=== PATIENT | female | born 1945 ===

== ENCOUNTER 2017-01-14 12:09 | Emergency (ER) | payer MEDICARE, OTHER ==
[2017-01-14 12:17] VITALS: BMI 21.0
[2017-01-14 12:18] VITALS: BP 150/78; PULSE 84; RESP 18; TEMP 98.4; O2SAT 97
--- NOTE | 2017-01-14 12:31 | C.PDOC ---
History Of Present Illness 71 year old female presents to the ED with complains of intermittent bilateral knee pain that began last year. Patient admits to taking naprosyn for the pain but it has recently finished. Patient denies seeing a doctor in that time period , falls or any other complaints at this time. Time Seen by Provider: 01/14/17 12:25 Chief Complaint (Nursing): Lower Extremity Problem/Injury History Per: Patient History/Exam Limitations: no limitations Onset/Duration Of Symptoms: Intermittent Episodes Current Symptoms Are (Timing): Still Present - Hip Description Of Injury: denies: Fell, Tripped Past Medical History Reviewed: Historical Data, Nursing Documentation, Vital Signs Vital Signs: Last Vital Signs Temp 98.4 F 01/14/17 12:18 Pulse 84 01/14/17 12:18 Resp 18 01/14/17 12:18 BP 150/78 01/14/17 12:18 Pulse Ox 97 01/14/17 16:05 - Medical History PMH: Back Problems Family History: States: Unknown Family Hx - Social History Hx Tobacco Use: No Hx Alcohol Use: Yes Hx Substance Use: No - Immunization History Hx Tetanus Toxoid Vaccination: Yes Hx Influenza Vaccination: Yes Hx Pneumococcal Vaccination: Yes Review Of Systems Constitutional: Negative for: Fever Gastrointestinal: Negative for: Vomiting, Diarrhea Musculoskeletal: Positive for: Other (bilateral knee pain) Physical Exam - Physical Exam Appears: Non-toxic Skin: Warm, Dry Extremity: Normal ROM, Tenderness (bilateral knee tenderness and swelling ), Other (negative compression distraction ) Extremity: Bilateral: Normal ROM Neurological/Psych: Oriented x3 ED Course And Treatment O2 Sat by Pulse Oximetry: 97 Medical Decision Making Medical Decision Making: Patient declines a chest x-ray. Disposition - Disposition Referrals: [facility] [Outside] [facility] [Outside] Chase Guerin III, MD [Staff Provider] - Disposition: HOME/ ROUTINE Disposition Time: 03:00 Condition: STABLE Prescriptions: Ibuprofen [Motrin] 600 mg PO Q8 #15 tab Instructions: Knee Pain (ED) - POA Present On Arrival: Deep Vein Thrombosis / PE - Clinical Impression Clinical Impression: Chronic knee pain - Scribe Statement The provider has reviewed the documentation as recorded by the Scribe Elida Gonzalez All medical record entries made by the Scribe were at my direction and personally dictated by me. I have reviewed the chart and agree that the record accurately reflects my personal performance of the history, physical exam, medical decision making, and the department course for this patient. I have also personally directed, reviewed, and agree with the discharge instructions and disposition.
== END 2017-01-14 12:55 | disposition home or self-care (01) ==
LOC: C.ER 12:09
DX: M25.562 Pain in left knee (principal); M25.561 Pain in right knee; G89.29 Other chronic pain

== ENCOUNTER 2017-02-18 14:39 | Emergency (ER) | payer MEDICARE, OTHER ==
[2017-02-18 14:44] VITALS: BMI 20.1
[2017-02-18 14:45] VITALS: BP 159/97; PULSE 82; TEMP 97.5; O2SAT 95
--- NOTE | 2017-02-18 15:45 | C.PDOC ---
History Of Present Illness 71 y/o female presents to the ED with complains of chronic bilateral knee pain x2-3 years, worse over the past few days. Pt has been taking tylenol #3 without relief. Denies fall, trauma or any other complaints. Time Seen by Provider: 02/18/17 14:53 Chief Complaint (Nursing): Lower Extremity Problem/Injury History Per: Patient History/Exam Limitations: no limitations Onset/Duration Of Symptoms: Days Current Symptoms Are (Timing): Worse Severity: Moderate Recent travel outside of the [place]: No Past Medical History Reviewed: Historical Data, Nursing Documentation, Vital Signs Vital Signs: Last Vital Signs Temp 97.5 F L 02/18/17 14:44 Pulse 82 02/18/17 14:44 Resp 20 02/18/17 15:50 BP 159/97 H 02/18/17 14:44 Pulse Ox 95 02/18/17 18:39 - Medical History PMH: Back Problems Family History: States: Unknown Family Hx - Social History Hx Tobacco Use: No Hx Alcohol Use: Yes Hx Substance Use: No - Immunization History Hx Tetanus Toxoid Vaccination: Yes Hx Influenza Vaccination: No Hx Pneumococcal Vaccination: No Review Of Systems Except As Marked, All Systems Reviewed And Found Negative. Musculoskeletal: Positive for: Other (bilateral knee pain) Neurological: Negative for: Weakness, Numbness Physical Exam - Physical Exam Appears: Non-toxic, No Acute Distress Skin: Warm, Dry, No Rash Head: Atraumatic, Normacephalic Eye(s): bilateral: Normal Inspection Oral Mucosa: Moist Neck: Normal ROM, No Midline Cervical Tenderness, No Paracervical Tenderness, Supple Chest: Symmetrical, No Tenderness Cardiovascular: Rhythm Regular, No Friction Rub, No Murmur Respiratory: Normal Breath Sounds, No Rales, No Rhonchi, No Wheezing Gastrointestinal/Abdominal: Soft, No Tenderness Back: Normal Inspection, No CVA Tenderness Extremity: Capillary Refill (<2 seconds), No Deformity, Other (minimal swelling anterior bilateral knees, full ROM, no tenderness) Extremity: Bilateral: Atraumatic Neurological/Psych: Oriented x3, Normal Motor, Normal Sensation Gait: Steady ED Course And Treatment O2 Sat by Pulse Oximetry: 95 (room air) Pulse Ox Interpretation: Normal Medical Decision Making Medical Decision Making: On re-exam, the patient reports mild improvement and is ambulatory in the ED with steady gait. Disposition - Disposition Referrals: [facility] [Outside] Erwin Bravo MD [Staff Provider] - Disposition: HOME/ ROUTINE Disposition Time: 15:43 Condition: GOOD Additional Instructions: Follow up with the medical doctor within 1-2 days. Return of worsened. Prescriptions: Naproxen [Naprosyn] 500 mg PO BID #20 tab traMADol [Ultram] 50 mg PO Q6 PRN #15 tab PRN Reason: Pain Instructions: Knee Pain (ED) - Clinical Impression Clinical Impression: Knee pain - PA / HEALTH WORKERS / Resident Statement MD/DO has reviewed & agrees with the documentation as recorded. - Scribe Statement The provider has reviewed the documentation as recorded by the Magnolia Barajas All medical record entries made by the Davidibtracy were at my direction and personally dictated by me. I have reviewed the chart and agree that the record accurately reflects my personal performance of the history, physical exam, medical decision making, and the department course for this patient. I have also personally directed, reviewed, and agree with the discharge instructions and disposition.
[2017-02-18 15:51] VITALS: RESP 20
== END 2017-02-18 15:50 | disposition home or self-care (01) ==
LOC: C.ER 14:39
DX: M25.562 Pain in left knee (principal); M25.561 Pain in right knee
CPT/HCPCS: 96372; 99284; J1885

== ENCOUNTER 2017-05-04 06:54 | Emergency (ER) | payer MEDICARE, OTHER ==
[2017-05-04 07:11] VITALS: BMI 19.5
[2017-05-04 07:14] VITALS: RESP 18
--- NOTE | 2017-05-04 08:57 | C.PDOC ---
History Of Present Illness 71-year-old female, presents to the emergency department with complaints of knee pain. Patient notes a Hx of bilateral knee pain x2 years, which is worse with walking. Denies trauma, numbness/weakness, or swelling. Time Seen by Provider: 05/04/17 07:18 Chief Complaint (Nursing): Lower Extremity Problem/Injury History Per: Patient History/Exam Limitations: no limitations Onset/Duration Of Symptoms: Days Current Symptoms Are (Timing): Still Present Severity: Moderate Past Medical History Reviewed: Historical Data, Nursing Documentation, Vital Signs Vital Signs: Last Vital Signs Temp 97.6 F 05/04/17 07:11 Pulse 83 05/04/17 07:11 Resp 18 05/04/17 07:11 BP 162/78 H 05/04/17 07:11 Pulse Ox 99 05/04/17 07:11 - Medical History PMH: Back Problems Denies: Chronic Kidney Disease Family History: States: No Known Family Hx - Social History Hx Tobacco Use: No Hx Alcohol Use: Yes Hx Substance Use: No - Immunization History Hx Tetanus Toxoid Vaccination: Yes Hx Influenza Vaccination: No Hx Pneumococcal Vaccination: No Review Of Systems Except As Marked, All Systems Reviewed And Found Negative. Constitutional: Negative for: Fever Gastrointestinal: Negative for: Nausea, Vomiting Musculoskeletal: Positive for: Other (B/L knee pain). Negative for: Back Pain Neurological: Negative for: Weakness, Numbness Physical Exam - Physical Exam Appears: Non-toxic, No Acute Distress Skin: Warm, Dry, No Rash Head: Atraumatic, Normacephalic Eye(s): bilateral: Normal Inspection, PERRL Nose: Normal Oral Mucosa: Moist Lips: Normal Appearing Neck: Normal ROM Cardiovascular: Rhythm Regular, No Murmur Respiratory: Normal Breath Sounds, No Accessory Muscle Use Extremity: Normal ROM, No Tenderness, Capillary Refill (<2 SECONDS), No Deformity, No Swelling ED Course And Treatment O2 Sat by Pulse Oximetry: 99 (on RA) Pulse Ox Interpretation: Normal - PA / MECHANICAL UNIT REPAIRER / Resident Statement MD/DO has reviewed & agrees with the documentation as recorded. - Scribe Statement The provider has reviewed the documentation as recorded by the Scribe (Gala Sheffield) All medical record entries made by the Scribe were at my direction and personally dictated by me. I have reviewed the chart and agree that the record accurately reflects my personal performance of the history, physical exam, medical decision making, and the department course for this patient. I have also personally directed, reviewed, and agree with the discharge instructions and disposition.
--- NOTE | 2017-05-04 09:04 | C.PDOC ---
History Of Present Illness 71-year-old female, presents to the emergency department with complaints of knee pain. Patient notes a Hx of bilateral knee pain x2 years, which is worse with walking. Denies trauma, numbness/weakness, or swelling. Time Seen by Provider: 05/04/17 07:18 Chief Complaint (Nursing): Lower Extremity Problem/Injury History Per: Patient History/Exam Limitations: no limitations Onset/Duration Of Symptoms: Days Current Symptoms Are (Timing): Still Present Severity: Moderate Past Medical History Reviewed: Historical Data, Nursing Documentation, Vital Signs Vital Signs: Last Vital Signs Temp 98.3 F 05/04/17 09:20 Pulse 79 05/04/17 09:20 Resp 18 05/04/17 09:20 BP 160/90 H 05/04/17 09:20 Pulse Ox 99 05/04/17 09:43 - Medical History PMH: Back Problems Denies: Chronic Kidney Disease Family History: States: No Known Family Hx - Social History Hx Tobacco Use: No Hx Alcohol Use: Yes Hx Substance Use: No - Immunization History Hx Tetanus Toxoid Vaccination: Yes Hx Influenza Vaccination: No Hx Pneumococcal Vaccination: No Review Of Systems Except As Marked, All Systems Reviewed And Found Negative. Constitutional: Negative for: Fever, Chills Gastrointestinal: Negative for: Nausea, Vomiting Musculoskeletal: Positive for: Other (B/L knee pain) Neurological: Negative for: Weakness, Numbness Physical Exam - Physical Exam Appears: Non-toxic, No Acute Distress Skin: Warm, Dry, No Rash Head: Atraumatic, Normacephalic Eye(s): bilateral: Normal Inspection, PERRL, EOMI Oral Mucosa: Moist Neck: Normal ROM, Supple Chest: Symmetrical, No Tenderness Cardiovascular: Rhythm Regular, No Friction Rub, No Murmur Respiratory: Normal Breath Sounds Gastrointestinal/Abdominal: Normal Exam, Soft, No Tenderness Back: Normal Inspection, No CVA Tenderness Extremity: Normal ROM, No Tenderness, No Pedal Edema, No Calf Tenderness, Capillary Refill (<2 seconds), No Deformity, No Swelling, Other (B/L knees: No swelling. No tenderness. Pulses are intact) Pulses: Left Dorsalis Pedis: Normal, Right Dorsalis Pedis: Normal Neurological/Psych: Oriented x3, Normal Speech, Normal Motor Gait: Steady ED Course And Treatment O2 Sat by Pulse Oximetry: 99 (on RA) Pulse Ox Interpretation: Normal Medical Decision Making Medical Decision Making: Patient has normal knee exam. On re-exam, the patient remains and feels better. ambulatory in the Ed with steady gait. Follow up with the medical doctor/clinic within 1-2 days, Return if worsened Disposition - Disposition Referrals: [facility] [Outside] Hayley Isaacs MD [Staff Provider] - Disposition: HOME/ ROUTINE Disposition Time: 09:02 Condition: GOOD Additional Instructions: Follow up with the medical doctor within 1-2 days. Return if worsened, Prescriptions: Naproxen [Naprosyn] 500 mg PO BID #20 tab predniSONE [Prednisone] 20 mg PO BID #10 tab traMADol [Ultram] 50 mg PO Q6 PRN #20 tab PRN Reason: Pain Instructions: Knee Pain (ED) - Clinical Impression Clinical Impression: Knee pain - PA / IVF EMBRYOLOGIST / Resident Statement MD/DO has reviewed & agrees with the documentation as recorded. - Scribe Statement The provider has reviewed the documentation as recorded by the Scribe (Gala Sheffield) All medical record entries made by the Scribe were at my direction and personally dictated by me. I have reviewed the chart and agree that the record accurately reflects my personal performance of the history, physical exam, medical decision making, and the department course for this patient. I have also personally directed, reviewed, and agree with the discharge instructions and disposition
[2017-05-04 09:21] VITALS: BP 160/90; PULSE 79; TEMP 98.3
[2017-05-04 09:36] VITALS: O2SAT 99
== END 2017-05-04 09:21 | disposition home or self-care (01) ==
LOC: C.ER 06:54
DX: M25.562 Pain in left knee (principal); M25.561 Pain in right knee
CPT/HCPCS: 96372; 99284; J1885

== ENCOUNTER 2017-05-17 11:31 | Emergency (ER) | payer MEDICARE, OTHER ==
[2017-05-17 11:31] VITALS: BMI 19.5
[2017-05-17 11:39] VITALS: O2SAT 97
--- NOTE | 2017-05-17 11:56 | C.PDOC ---
History Of Present Illness 71 yo female, presents with chronic knee pain. pt has had this "for years". pt seen in er multiple times. pt due to see clinic next week. pt states had previous neg imaging. no new trauma. Time Seen by Provider: 05/17/17 11:41 Chief Complaint (Nursing): Lower Extremity Problem/Injury Past Medical History Reviewed: Historical Data, Nursing Documentation, Vital Signs Vital Signs: Last Vital Signs Temp 98 F 05/17/17 11:36 Pulse 79 05/17/17 11:36 Resp 18 05/17/17 11:36 BP 147/84 05/17/17 11:36 Pulse Ox 97 05/17/17 12:09 - Medical History PMH: Back Problems Denies: Chronic Kidney Disease Family History: States: Unknown Family Hx - Social History Hx Tobacco Use: No Hx Alcohol Use: Yes Hx Substance Use: No - Immunization History Hx Tetanus Toxoid Vaccination: Yes Hx Influenza Vaccination: No Hx Pneumococcal Vaccination: No Review Of Systems Musculoskeletal: Positive for: Other ((+)bl knee pain) Physical Exam - Physical Exam Appears: Well, No Acute Distress Skin: Normal Color, Warm, Dry Eye(s): bilateral: Normal Inspection, PERRL, EOMI Nose: Normal Throat: Normal Neck: Normal Cardiovascular: Rhythm Regular Respiratory: Normal Breath Sounds Gastrointestinal/Abdominal: Normal Exam Back: Normal Inspection Extremity: Normal ROM, Tenderness ((+)bl knee normal rom, no compression/ distraction neg anterior posterior drawer. ) ED Course And Treatment O2 Sat by Pulse Oximetry: 97 Medical Decision Making Medical Decision Making: chronic knee pain, previously imaged. 1200: pt reassesed. pain improved. ambulatory in nad. Disposition - Disposition Disposition: HOME/ ROUTINE Disposition Time: 12:04 Condition: STABLE Additional Instructions: please follow up with specialist. return to er with worsening symptoms or concerns. Prescriptions: Naproxen [Naprosyn] 500 mg PO BID PRN #14 tab PRN Reason: Pain, Mild (1-3) Instructions: Knee Pain (ED) Forms: [employer] (Malay) - Clinical Impression Clinical Impression: Knee pain, bilateral
[2017-05-17 12:16] VITALS: BP 155/93; PULSE 80; RESP 12; TEMP 97.9
== END 2017-05-17 12:22 | disposition home or self-care (01) ==
LOC: C.ER 11:31
DX: M25.561 Pain in right knee (principal); M25.562 Pain in left knee
CPT/HCPCS: 96372; 99284; J1885

== ENCOUNTER 2017-08-24 21:08 | Emergency (ER) | payer MEDICARE, OTHER ==
[2017-08-24 21:08] VITALS: BMI 27.0
[2017-08-24 21:21] VITALS: BP 136/83; PULSE 78; RESP 20; TEMP 97.9; O2SAT 96
--- NOTE | 2017-08-24 21:37 | C.PDOC ---
History Of Present Illness 71 y/o female who gets frequent leg cramps c/o cramp in right ankle today when taking a nap this afternoon, now resolved. pt is requesting percocet for her cramps, also c/o bilateral chornic knee pain. no new injury. pt has had multiole ed visits for same and neg inmaging in past. Time Seen by Provider: 08/24/17 21:26 Chief Complaint (Nursing): Lower Extremity Problem/Injury Past Medical History Vital Signs: Last Vital Signs Temp 97.9 F 08/24/17 21:18 Pulse 78 08/24/17 21:18 Resp 20 08/24/17 21:18 BP 136/83 08/24/17 21:18 Pulse Ox 96 08/24/17 21:42 - Medical History PMH: Back Problems Denies: Chronic Kidney Disease Family History: States: Unknown Family Hx - Social History Hx Tobacco Use: No Hx Alcohol Use: Yes Hx Substance Use: No - Immunization History Hx Tetanus Toxoid Vaccination: Yes Hx Influenza Vaccination: No Hx Pneumococcal Vaccination: No ED Course And Treatment O2 Sat by Pulse Oximetry: 96 Disposition - Disposition Referrals: [facility] [place] [Outside] [facility] [Outside] Disposition: HOME/ ROUTINE Disposition Time: 21:39 Condition: STABLE Additional Instructions: Follow up in Medical clinic and with orthopedics for further evaluation of your knee pain and leg cramps. Prescriptions: Acetaminophen [Tylenol 325mg tab] 650 mg PO Q6 #30 tab Instructions: Leg Cramps (ED) Forms: [employer] (Croatian), General Discharge Instructions - Clinical Impression Clinical Impression: Leg cramps
== END 2017-08-24 21:51 | disposition home or self-care (01) ==
LOC: C.ER 21:08
DX: R25.2 Cramp and spasm (principal)

== ENCOUNTER 2017-12-09 17:48 | Emergency (ER) | payer MEDICARE, OTHER ==
[2017-12-09 17:48] VITALS: BMI 27.0
[2017-12-09 18:05] VITALS: BP 145/85; PULSE 82; RESP 16; TEMP 98.2; O2SAT 98
--- NOTE | 2017-12-09 19:32 | C.PDOC ---
History Of Present Illness 72 y/o female c/o pain in left thigh that felt like electricity (earlier today) and pain in left knee that is chronic. pt seen in clinic and gets injections in knee. no numbness, no tingling or electricity feeling now. Time Seen by Provider: 12/09/17 19:12 Chief Complaint (Nursing): Lower Extremity Problem/Injury History/Exam Limitations: no limitations Onset/Duration Of Symptoms: Days (1), Intermittent Episodes Current Symptoms Are (Timing): Gone (electrical feeling) Past Medical History Reviewed: Historical Data, Nursing Documentation, Vital Signs Vital Signs: Last Vital Signs Temp 98.2 F 12/09/17 18:00 Pulse 82 12/09/17 18:00 Resp 16 12/09/17 18:00 BP 145/85 12/09/17 18:00 Pulse Ox 98 12/11/17 22:49 - Medical History PMH: Back Problems Denies: Chronic Kidney Disease Family History: States: Unknown Family Hx - Social History Hx Tobacco Use: No Hx Alcohol Use: Yes Hx Substance Use: No - Immunization History Hx Tetanus Toxoid Vaccination: Yes Hx Influenza Vaccination: No Hx Pneumococcal Vaccination: No Review Of Systems Genitourinary: Negative for: Dysuria, Frequency, Incontinence Musculoskeletal: Positive for: Other (left knee pain). Negative for: Neck Pain , Back Pain Skin: Negative for: Rash Neurological: Negative for: Weakness, Numbness Physical Exam - Physical Exam Appears: Non-toxic, No Acute Distress, Other (applying eye shadow) Skin: Warm, Dry Back: No Vertebral Tenderness, No Paraspinal Tenderness Extremity: Normal ROM, Tenderness (left knee with rom), No Swelling Pulses: Left Femoral: Normal, Left Dorsalis Pedis: Normal Neurological/Psych: Oriented x3, Normal Speech, Normal Cognition, Normal Motor, Normal Sensation ED Course And Treatment O2 Sat by Pulse Oximetry: 98 Medical Decision Making Medical Decision Making: knee pain chronic, with 'electrical' pain in thigh earlier, now resolved, tx with tylenol and d/c Disposition Counseled Patient/Family Regarding: Diagnosis, Need For Followup - Disposition Referrals: [facility] [Outside] Disposition: HOME/ ROUTINE Disposition Time: 19:35 Condition: STABLE Additional Instructions: Follow up in medical clinic next week for your knee pain. Forms: [employer] (Vincentian), General Discharge Instructions - Clinical Impression Clinical Impression: Chronic pain of left knee
== END 2017-12-09 19:56 | disposition home or self-care (01) ==
LOC: C.ER 17:48
DX: M25.562 Pain in left knee (principal); G89.29 Other chronic pain

== ENCOUNTER 2018-04-27 02:53 | Emergency (ER) | payer MEDICARE, OTHER ==
[2018-04-27 02:53] VITALS: BMI 27.0
[2018-04-27 03:07] VITALS: PULSE 80; O2SAT 97
--- NOTE | 2018-04-27 04:11 | C.PDOC ---
History Of Present Illness 72 year old female, whose PMHx includes chronic bilateral hip pain, presents to the ED for evaluation of right hip pain radiating down the right leg. Patient denies any recent injuries/falls, extremity numbness/weakness, urinary or bowel incontinence, or any other complaints at this time. Time Seen by Provider: 04/27/18 03:24 Chief Complaint (Nursing): Lower Extremity Problem/Injury History Per: Patient History/Exam Limitations: no limitations Onset/Duration Of Symptoms: Hrs Current Symptoms Are (Timing): Still Present Additional History Per: Patient - Hip Description Of Injury: denies: Fell, Tripped, Struck With Object - Ankle/Foot Description Of Injury: denies: Fell, Struck With Object, Struck Against Object Past Medical History Reviewed: Historical Data, Nursing Documentation, Vital Signs Vital Signs: Last Vital Signs Temp 98.0 F 04/27/18 04:54 Pulse 80 04/27/18 03:03 Resp 17 04/27/18 04:54 BP 156/89 H 04/27/18 04:54 Pulse Ox 97 04/27/18 04:54 - Medical History PMH: Back Problems Denies: Chronic Kidney Disease Surgical History: No Surg Hx Family History: States: Unknown Family Hx - Social History Hx Tobacco Use: No Hx Alcohol Use: Yes Hx Substance Use: No - Immunization History Hx Tetanus Toxoid Vaccination: Yes Hx Influenza Vaccination: No Hx Pneumococcal Vaccination: No Review Of Systems Musculoskeletal: Positive for: Foot Pain (right), Other (right hip pain ) Neurological: Negative for: Weakness, Numbness Physical Exam - Physical Exam Appears: Non-toxic, No Acute Distress Skin: Normal Color, Warm, Dry Head: Atraumatic, Normacephalic Eye(s): bilateral: Normal Inspection, EOMI Oral Mucosa: Moist Neck: Normal ROM, Supple Chest: Symmetrical, No Deformity, No Tenderness Cardiovascular: Rhythm Regular Respiratory: Normal Breath Sounds, No Rales, No Rhonchi, No Wheezing Gastrointestinal/Abdominal: Soft, No Tenderness Extremity: Normal ROM, No Tenderness, Capillary Refill (less than 2 seconds ), No Deformity, No Swelling Pulses: Left Dorsalis Pedis: Normal, Right Dorsalis Pedis: Normal Neurological/Psych: Oriented x3, Normal Speech, Normal Cognition ED Course And Treatment O2 Sat by Pulse Oximetry: 97 (on RA) Pulse Ox Interpretation: Normal Progress Note: Toradol IM given. PT declined XR. No trauma. On re-examination, patient is resting comfortably, showing no signs of distress, and reports an improvement in her symptoms. Patient is ambulatory in the ED with a steady gait and is stable for discharge. Patient is advised to follow up with her PMD within 1-2 days for further evaluation and/or return to the ED if symptoms persist or worsen. Disposition - Disposition Referrals: Leora Winslow MD [Primary Care Provider] - Disposition: HOME/ ROUTINE Disposition Time: 04:10 Condition: STABLE Additional Instructions: Follow up with clinic in 1-2 days. Return to ER if symptoms persist or worsen. Instructions: Osteoarthritis (DC) Forms: [employer] (Surinamese) - Clinical Impression Clinical Impression: Osteoarthritis, Chronic hip pain - PA / FORCE VARIATION EQUIPMENT TENDER / Resident Statement MD/DO has reviewed & agrees with the documentation as recorded. - Scribe Statement The provider has reviewed the documentation as recorded by the Scribe (Taryn Wright) All medical record entries made by the Scribe were at my direction and personally dictated by me. I have reviewed the chart and agree that the record accurately reflects my personal performance of the history, physical exam, medical decision making, and the department course for this patient. I have also personally directed, reviewed, and agree with the discharge instructions and disposition.
[2018-04-27 04:55] VITALS: BP 156/89; RESP 17; TEMP 98
== END 2018-04-27 04:56 | disposition home or self-care (01) ==
LOC: SUPCPDRO 02:53 → C.ER 02:53
DX: M19.90 Unspecified osteoarthritis, unspecified site (principal); G89.29 Other chronic pain; M25.551 Pain in right hip
CPT/HCPCS: 96372; 99283; J1885

== ENCOUNTER 2019-01-05 00:39 | Emergency (ER) | payer MEDICARE, OTHER ==
[2019-01-05 00:39] VITALS: BMI 27.0
--- NOTE | 2019-01-05 00:55 | C.PDOC ---
History Of Present Illness 73 year old female presents to the ED for evaluation of sudden onset of headache. Patient reports some associated dizziness, dull aching headache. Patient reports symptoms occurred in the past, this time she became worries and came for an evaluation. Patient denies fever, chills, visual changes, nausea vomit, CP, SOB, palpitations. Time Seen by Provider: 01/05/19 00:54 Chief Complaint (Nursing): Headache History Per: Patient History/Exam Limitations: no limitations Onset/Duration Of Symptoms: Hrs Current Symptoms Are (Timing): Still Present Quality: "Pain" Recent travel outside of the [place]: No Additional History Per: Patient Past Medical History Reviewed: Historical Data, Nursing Documentation, Vital Signs Vital Signs: Last Vital Signs Temp 97.6 F 01/05/19 00:47 Pulse 89 01/05/19 00:47 Resp 20 01/05/19 00:47 BP 184/109 H 01/05/19 00:47 Pulse Ox 99 01/05/19 00:47 - Medical History PMH: Back Problems Denies: Chronic Kidney Disease Surgical History: No Surg Hx Family History: States: Unknown Family Hx - Social History Hx Tobacco Use: No Hx Alcohol Use: Yes Hx Substance Use: No - Immunization History Hx Tetanus Toxoid Vaccination: Yes Hx Influenza Vaccination: No Hx Pneumococcal Vaccination: No Review Of Systems Constitutional: Negative for: Fever, Chills Eyes: Negative for: Vision Change Cardiovascular: Negative for: Chest Pain Respiratory: Negative for: Shortness of Breath Gastrointestinal: Negative for: Nausea, Vomiting, Abdominal Pain Musculoskeletal: Negative for: Neck Pain Skin: Negative for: Rash Neurological: Positive for: Headache. Negative for: Weakness, Numbness Physical Exam - Physical Exam Appears: Non-toxic, No Acute Distress Skin: Warm, Dry Head: Normacephalic Eye(s): bilateral: Normal Inspection, PERRL, EOMI Neck: No Midline Cervical Tenderness, Supple Chest: Symmetrical Cardiovascular: Rhythm Regular Respiratory: No Rales, No Rhonchi, No Wheezing Gastrointestinal/Abdominal: Soft, No Tenderness, No Guarding, No Rebound Extremity: Bilateral: Atraumatic, Normal Color And Temperature, Normal ROM Neurological/Psych: Oriented x3, Normal Speech, Normal Cognition Gait: Steady ED Course And Treatment - Laboratory Results Result Diagrams: 01/05/19 01:47 01/05/19 01:47 ECG: Interpreted By Me, Viewed By Me ECG Rhythm: Sinus Rhythm (69), Nonspecific Changes O2 Sat by Pulse Oximetry: 99 (ON RA) Pulse Ox Interpretation: Normal - CT Scan/US CT head Other Rad Studies (CT/US): Read By Radiologist, Radiology Report Reviewed CT/US Interpretation: CT scan of the head. CLINICAL HISTORY: PATIENT COMPLAINING OF OCCIPITAL/BASE OF SKULL AND RIGHT RADIATING PAIN TO LATERAL NECK NO N/V/TRAUMA HELICAL (Hx). TECHNIQUE: Multiple axial CT images were obtained through the brain without IV contrast material. COMMENTS: There is normal configuration of sella turcica. There are no intra or extra-axial collections. There is no mass effect or midline shift. There is no evidence of hematoma formation. No hydrocephalus is present. The ventricles are symmetrical. No abnor mal calcifications are present. There is diffuse age-appropriate cerebellar and cerebral atrophy with proportionally dilated ventricles and cortical sulci. There are bilateral periventricular and subcortical white matter hypolucencies compatible with mild chronic microvascular disease. Otherwise, no significant focal abnormalities are seen either in the posterior fossa or supratentorial compartment. Minimal secretions in the right maxillary, sphenoid sinuses and ethmoid air cells. IMPRESSION: 1. Age-appropriate cerebellar and cerebral atrophy. 2. Mild chronic microvascular disease. 3. No evidence of acute intracranial pathology. 4. Secretions in the paranasal sinuses. Thank you for your kind referral of this patient. . Electronically signed on Jan 05, 2019 2:48:20 AM EDT by: Qian Bran M.D., Certified by ABR, MSK, Neuroradiology Progress Note: Plan: - CT head. - EKG. - Labs. Pt is headache free. Ambulating without any difficulty. Reevaluation Time: 04:12 Reassessment Condition: Improved NIHSS Stroke Scale - Date/Time Evaluation Performed Date Performed: 01/05/19 Time Performed: 00:58 When Was NIHSS Performed: Baseline - How Severe is the [place] Level of Consciousness: 0=Alert LOC to Questions: 0=Both comments correct LOC to commands: 0=Obeys both correctly Best Gaze: 0=Normal Visual: 0=No visual loss Facial: 0=Normal Motor Arm - Left: 0=No drift Motor Arm - Right: 0=No drift Motor Leg - Left: 0=No drift Motor Leg - Right: 0=No drift Limb Ataxia: 0=Absent Sensory: 0=Normal Best Language: 0=No aphasia Dysarthia: 0=Normal articulation Extinction & Inattention (Neglect): 0=Normal, no object Score: 0 Medical Decision Making Medical Decision Making: Upon provider reevaluation patient is feeling better, is medically stable, and requires no further treatment in the ED at this time. Patient will be discharged home . Counseling was provided and all questions were answered regarding diagnosis and need for follow up with the referred clinic. There is agreement to discharge plan. Return if symptoms persist or worsen. Disposition Counseled Patient/Family Regarding: Studies Performed, Diagnosis, Need For Followup - Disposition Referrals: [facility] [Outside] Disposition: HOME/ ROUTINE Disposition Time: 00:55 Condition: FAIR Additional Instructions: Please return if symptoms recur Instructions: Headache, Adult (DC) Forms: [facility] (Bel[place]ian) - Clinical Impression Clinical Impression: Headache - Scribe Statement The provider has reviewed the documentation as recorded by the Scribe Blaise Palacios All medical record entries made by the Scribe were at my direction and personally dictated by me. I have reviewed the chart and agree that the record accurately reflects my personal performance of the history, physical exam, medical decision making, and the department course for this patient. I have also personally directed, reviewed, and agree with the discharge instructions and disposition.
[2019-01-05 01:52] LABS: BASO # 0.1 K/uL (0.0-0.2); BASO % 0.8 % (0.0-2.0); EOS # 0.3 K/uL (0.0-0.7); HEMOGLOBIN 12.1 g/dL (11.0-16.0); LYMPH # 1.6 K/uL (1.0-4.3); LYMPH % 17.5 % (20.0-40.0); MEAN CELL VOLUME 85.7 fL (81.0-99.0); MEAN CORPUSCULAR HEMOGLOBIN 27.9 pg (27.0-31.0); MEAN CORPUSCULAR HGB CONC 32.5 g/dL (33.0-37.0); MEAN PLATELET VOLUME 6.7 fL (7.2-11.7); MONO # 0.7 K/uL (0.0-0.8); MONO % 7.4 % (0.0-10.0); NEUT # 6.4 K/uL (1.8-7.0); NEUT % 71.3 % (50.0-75.0); NRBC % 0.1 % (0.0-2.0); RBC 4.34 Mil/uL (3.80-5.20)
[2019-01-05 02:05] LABS: ALB/GLOB RATIO 1.4 (1.0-2.1); ALBUMIN 4.1 g/dL (3.5-5.0); AST/SGOT 22 U/L (14-36); BLOOD UREA NITROGEN 17 mg/dL (7-17); GFR NON-AFRICAN AMERICAN > 60
[2019-01-05 02:28] LABS: ALT/SGPT < 6 U/L (9-52)
[2019-01-05 04:25] VITALS: BP 125/78; PULSE 84; RESP 17; TEMP 98.6; O2SAT 98
--- NOTE | 2019-01-05 06:26 | CT ---
Date of service: 01/05/2019 PROCEDURE: CT HEAD WITHOUT CONTRAST. HISTORY: Headache COMPARISON: None available. TECHNIQUE: Axial computed tomography images were obtained through the head/brain without intravenous contrast. Radiation dose: Total exam DLP = 889.07 mGy-cm. This CT exam was performed using one or more of the following dose reduction techniques: Automated exposure control, adjustment of the mA and/or kV according to patient size, and/or use of iterative reconstruction technique. FINDINGS: HEMORRHAGE: No intracranial hemorrhage. BRAIN: No mass effect or edema. Scattered focal lucencies in the subcortical and periventricular white matter suggestive for chronic microvascular ischemic change. Diffuse generalized parenchymal atrophy. VENTRICLES: Unremarkable. No hydrocephalus. CALVARIUM: Unremarkable. PARANASAL SINUSES: Mucosal opacification thickening with a relatively hypoplastic right maxillary sinus. Mucosal thickening and opacification of the sphenoid sinus and ethmoid air cells. Frontal sinus is preserved. 1.5 centimeter mucosal retention cyst and or polyp at the lateral aspect of the right maxillary sinus. MASTOID AIR CELLS: Unremarkable as visualized. No inflammatory changes. OTHER FINDINGS: Intracranial arterial calcifications. IMPRESSION: No acute intracranial abnormality. Chronic microvascular ischemic changes. Diffuse generalized parenchymal atrophy. Sinus mucosal disease. If symptoms persists, consider correlation with MRI. A preliminary report was generated at 2:48 a.m. on 01/05/[address] Qian Bran from [facility].
--- NOTE | 2019-01-07 17:26 | CARD ---
APPROVED REPORT Date of service: 01/05/2019 EKG Measurement Heart [id number] <Conclusion> Normal sinus rhythm Normal ECG
== END 2019-01-05 04:24 | disposition home or self-care (01) ==
LOC: C.ER 00:39
DX: R51 Headache (principal)

== ENCOUNTER 2019-03-05 09:49 | Outpatient (CLI) | payer MEDICARE | END 2019-03-05 09:50 | disposition home or self-care (01) | LOC: C.VASC 09:49 | DX: M79.89 Other specified soft tissue disorders (principal) ==